=== PATIENT | female | born 2005 | race Two or more races ===

== ENCOUNTER 2024-10-04 18:37 | Emergency (ER) | payer BC ==
[~2024-10-04] VITALS: Ht 154.9 cm; Wt 54.5 kg
[2024-10-04 18:41] VITALS: BP 125/79; PULSE 68; RESP 18; TEMP 98.8; O2SAT 99
[2024-10-04 19:48] LABS: PLATELET COUNT (AUTO) 199 K/uL (150-450); RED BLOOD CELL COUNT(AUTO) 4.50 MIL/uL (4.00-5.20); RED CELL DISTRIBUTION WIDTH 14.2 % (11.5-14.5); WHITE BLOOD COUNT (AUTO) 3.1 K/uL (4.5-11.0)
[2024-10-04] MEDS: SODIUM CHLORIDE 0.9% 1,000 ML IV ONE (19:50)
[2024-10-04] MEDS: METOCLOPRAMIDE HCL 5 MG/ML 2 ML VIAL IVP ONE (19:50)
[2024-10-04] MEDS: KETOROLAC TROMETHAMINE 30 MG/ML VIAL IVP ONE (19:51)
[2024-10-04 19:56] LABS: CALCIUM, TOTAL 9.3 mg/dL (8.8-10.5); CREATININE 0.93 mg/dL (0.60-1.30); GLOMERULAR FILTR. RATE CALC > 60 mL/min (>60); GLUCOSE,RANDOM 95 mg/dL (70-110); SODIUM SERUM 142 mmol/L (136-145); UREA NITROGEN, BLOOD 18 mg/dL (7-18)
[2024-10-04] MEDS ORDERED: AMOX250C4 PO (20:27)
== END 2024-10-04 20:38 | disposition home or self-care (01) ==
LOC: EMS 18:37
DX: G43.909 Migraine, unspecified, not intractable, without status migrainosus (principal); J06.9 Acute upper respiratory infection, unspecified; F41.9 Anxiety disorder, unspecified; Z98.890 Other specified postprocedural states; Z87.19 Personal history of other diseases of the digestive system
CPT/HCPCS: 99284; 96374; 96375; 71045; 96361; 80048; 84703; 85025; 36415; J1885; J1200; J2765; J7030